=== PATIENT | male | born 1985 | race Hispanic/Latino ===

== ENCOUNTER 2017-03-21 09:52 | Emergency (ER) | payer SELFPAY ==
[2017-03-21 10:43] VITALS: BP 112/73
--- NOTE | 2017-03-21 12:36 | Emergency Department Report ---
- General Chief complaint: Extremity Problem,Nontraumatic Stated complaint: TOE PAIN Time Seen by Provider: 03/21/17 12:33 Source: patient Mode of arrival: Ambulatory Limitations: No Limitations - History of Present Illness MD complaint: abscess/boil -: Gradual Tetanus Up to Date: yes Location: R foot (great toe) Severity: moderate Quality: aching Consistency: constant Improves with: none Worsens with: none Associated symptoms: denies other symptoms Treatments Prior to Arrival: none - Related Data Previous Rx's Medication Instructions Recorded Last Taken Type Amoxicillin [Trimox CAP] 500 mg PO BID #20 capsule 03/21/17 Unknown Rx Allergies Allergy/AdvReac Type Severity Reaction Status Date / Time No Known Allergies Allergy Unverified 10/08/14 22:41 Abscess Boil HPI - HPI Chief Complaint: Extremity Problem,Nontraumatic Stated Complaint: TOE PAIN Time Seen by Provider: 03/21/17 12:33 Home Medications: Previous Rx's Medication Instructions Recorded Last Taken Type Amoxicillin [Trimox CAP] 500 mg PO BID #20 capsule 03/21/17 Unknown Rx Allergies/Adverse Reactions: Allergies Allergy/AdvReac Type Severity Reaction Status Date / Time No Known Allergies Allergy Unverified 10/08/14 22:41 ED Review of Systems ROS: Stated complaint: TOE PAIN Other details as noted in HPI Comment: All other systems reviewed and negative Skin: other (toe pain and infection) ED Past Medical Hx - Past Medical History Previous Medical History?: No - Surgical History Past Surgical History?: No Additional Surgical History: wrist surgey as a child - Family History Family history: no significant - Social History Smoking Status: Never Smoker Substance Use Type: None - Medications Home Medications: Home Medications Medication Instructions Recorded Confirmed Last Taken Type Amoxicillin [Trimox CAP] 500 mg PO BID #20 capsule 03/21/17 Unknown Rx ED Physical Exam - General Limitations: No Limitations General appearance: alert - Head Head exam: Present: atraumatic - Eye Eye exam: Present: PERRL - ENT ENT exam: Present: mucous membranes moist - Neck Neck exam: Present: normal inspection - Respiratory Respiratory exam: Present: normal lung sounds bilaterally - Cardiovascular Cardiovascular Exam: Present: regular rate - GI/Abdominal GI/Abdominal exam: Present: soft - Rectal Rectal exam: Present: deferred - Extremities Exam Extremities exam: Present: normal inspection - Back Exam Back exam: Present: normal inspection - Neurological Exam Neurological exam: Present: alert, oriented X3 - Psychiatric Psychiatric exam: Present: normal affect, normal mood - Skin Skin exam: Present: other (r great toe w paronychia that pt opened. draining. red. he has used peroxide and neosporin cream. needs anbx) ED Course Vital Signs 03/21/17 10:38 Temperature 98.4 F Pulse Rate 73 Respiratory 16 Rate Blood Pressure 112/73 O2 Sat by Pulse 97 Oximetry - Reevaluation(s) Reevaluation #1: 03/21/17 12:51 foot cleaned educated on foot care dry dressing applied draining so no i/d needed dc home w dc poc ED Medical Decision Making - Medical Decision Making see note - Differential Diagnosis paronychia Critical care attestation.: If time is entered above; I have spent that time in minutes in the direct care of this critically ill patient, excluding procedure time. ED Disposition Clinical Impression: Paronychia Disposition: DC-01 TO HOME OR SELFCARE Is pt being admited?: No Does the pt Need Aspirin: No Condition: Stable Instructions: Paronychia (ED) Additional Instructions: soak in epsom salts three times per day for 20 minutes each time antibiotic until gone- it is free at [facility] motrin or tylenol for pain keep clean and dry Prescriptions: Amoxicillin [Trimox CAP] 500 mg PO BID #20 capsule Referrals: TI GARCIA JR, MD [Staff Physician] - 3-5 Days Time of Disposition: 12:40
== END 2017-03-21 13:44 | disposition home or self-care (01) ==
LOC: ED 09:52
DX: L03.031 Cellulitis of right toe (principal)
CPT/HCPCS: 99282